=== PATIENT | female | born 1990 | race Caucasian/White ===

== ENCOUNTER 2018-12-18 17:07 | Inpatient (IN) ==
[2018-12-18] MEDS ORDERED: Acetaminophen 325 MG TABLET PO PRN (19:28)
[2018-12-18] MEDS ORDERED: Simethicone 80 MG TAB.CHEW PO PRN (19:28)
[2018-12-18] MEDS: Ondansetron ODT 4 MG TAB.RAPDIS SL PRN (21:44)
[2018-12-19] MEDS: *HR* Enoxaparin 80 MG/0.8 ML SYRINGE SQ SCH ×2 (06:27→18:11)
[2018-12-19] MEDS: Ondansetron ODT 4 MG TAB.RAPDIS SL PRN ×2 (06:28→15:10)
[2018-12-19] MEDS: Famotidine 20 MG/2 ML VIAL IVP SCH ×2 (06:36→18:01)
[2018-12-19] MEDS: Multivit/Ca/Min/Fe/FA 1 TAB TABLET PO SCH (09:35)
[2018-12-20] MEDS: *HR* Enoxaparin 80 MG/0.8 ML SYRINGE SQ SCH ×2 (05:43→17:10)
[2018-12-20] MEDS: Ondansetron ODT 4 MG TAB.RAPDIS SL PRN ×3 (05:43→22:56)
[2018-12-20] MEDS: Famotidine 20 MG/2 ML VIAL IVP SCH ×2 (05:43→17:09)
[2018-12-20 06:26] LABS: Basophils % 0.4 %; Eosinophils # 0.2 K/mcL (0.0-0.6); Hematocrit 25.9 % (35.3-44.9); Hemoglobin 8.7 g/dL (11.5-15.4); Immature Granulocytes % 1.1 % (0-4); Lymphocytes # 1.4 K/mcL (0.6-4.6); Mean Corpuscular HGB Conc 33.6 g/dL (31.6-35.5); Mean Corpuscular Hemoglobin 30.1 pg (28.0-33.3); Mean Corpuscular Volume 89.6 fL (83.0-100.0); Mean Platelet Volume 9.2 fL (9.4-12.4); Monocytes # 0.7 K/mcL (0.0-1.3); Neutrophils # 3.2 K/mcL (1.6-8.9); Platelet Count 402 K/mcL (140-400); Red Blood Count 2.89 M/mcL (3.82-4.97); Red Cell Distribution Width 11.5 % (11.5-14.5); Segmented Neutrophils % 58.5 %; White Blood Count 5.4 K/mcL (4.3-11.1)
[2018-12-20 06:48] LABS: Alanine Aminotransferase 33 Units/L (7-52); Albumin 2.9 g/dL (3.5-5.7); Alkaline Phosphatase 86 Units/L (34-104); Aspartate Amino Transferase 29 Units/L (13-39); BUN/Creatinine Ratio 24 (6-26); Bilirubin,Total 0.4 mg/dL (0.3-1.0); Blood Urea Nitrogen 10 mg/dL (6-20); Calcium 8.6 mg/dL (8.6-10.3); Carbon Dioxide 27 mEq/L (23-29); Chloride 102 mEq/L (98-107); Globulin 2.9 g/dL (2.4-3.5); Glucose 91 mg/dL (70-105); Osmolality,Calculated 283 (280-300); Potassium 3.9 mEq/L (3.5-5.1); Sodium 137 mEq/L (136-145); Total Protein 5.8 g/dL (6.4-8.9); eGFR For African Americans > 60 (> 60); eGFR For Non-African Americans > 60 (> 60)
[2018-12-20] MEDS: Multivit/Ca/Min/Fe/FA 1 TAB TABLET PO SCH (08:16)
[2018-12-20 12:59] LABS: % Iron Saturation 12 % (15-50); Iron 25 mcg/dL (50-170); Transferrin 153 mg/dL (203-362)
[2018-12-20 13:14] LABS: Ferritin 170 ng/mL (10-120)
[2018-12-20 13:19] LABS: Folate 12.7 ng/mL (3.0-16.0)
[2018-12-20] MEDS ORDERED: Mag Hydrox/Al Hydrox/Simeth 30 ML UDC PO ONE (20:14)
[2018-12-20] MEDS ORDERED: ALPRAZolam 0.25 MG TABLET PO PRN (21:10)
[2018-12-20 21:48] LABS: Basophils % 0.3 %; Eosinophils # 0.2 K/mcL (0.0-0.6); Eosinophils % 2.7 %; Hemoglobin 8.6 g/dL (11.5-15.4); Immature Granulocytes % 1.1 % (0-4); Lymphocytes # 1.7 K/mcL (0.6-4.6); Lymphocytes % 26.9 %; Mean Corpuscular HGB Conc 33.1 g/dL (31.6-35.5); Mean Corpuscular Volume 90.6 fL (83.0-100.0); Mean Platelet Volume 9.1 fL (9.4-12.4); Monocytes # 0.7 K/mcL (0.0-1.3); Monocytes % 10.5 %; Neutrophils # 3.7 K/mcL (1.6-8.9); Platelet Count 415 K/mcL (140-400); Red Blood Count 2.87 M/mcL (3.82-4.97); Red Cell Distribution Width 11.5 % (11.5-14.5); Segmented Neutrophils % 58.5 %; White Blood Count 6.3 K/mcL (4.3-11.1)
[2018-12-20 22:09] LABS: Alanine Aminotransferase 35 Units/L (7-52); Alkaline Phosphatase 88 Units/L (34-104); Aspartate Amino Transferase 28 Units/L (13-39); BUN/Creatinine Ratio 20 (6-26); Bilirubin,Total 0.3 mg/dL (0.3-1.0); Blood Urea Nitrogen 10 mg/dL (6-20); Calcium 8.6 mg/dL (8.6-10.3); Carbon Dioxide 25 mEq/L (23-29); Chloride 102 mEq/L (98-107); Glucose 118 mg/dL (70-105); Osmolality,Calculated 282 (280-300); Potassium 4.1 mEq/L (3.5-5.1); Sodium 136 mEq/L (136-145); eGFR For African Americans > 60 (> 60); eGFR For Non-African Americans > 60 (> 60)
[2018-12-21] MEDS: *HR* Enoxaparin 80 MG/0.8 ML SYRINGE SQ SCH ×2 (05:52→17:07)
[2018-12-21] MEDS: Famotidine 20 MG/2 ML VIAL IVP SCH ×2 (05:53→17:07)
[2018-12-21] MEDS: Multivit/Ca/Min/Fe/FA 1 TAB TABLET PO SCH (09:52)
[2018-12-21] MEDS: Ondansetron ODT 4 MG TAB.RAPDIS SL PRN ×2 (09:52→23:00)
[2018-12-22] MEDS: *HR* Enoxaparin 80 MG/0.8 ML SYRINGE SQ SCH (06:43)
[2018-12-22] MEDS: Famotidine 20 MG/2 ML VIAL IVP SCH (06:43)
[2018-12-22 07:11] VITALS: BP 97/65
[2018-12-22] MEDS: Multivit/Ca/Min/Fe/FA 1 TAB TABLET PO SCH (07:24)
== END 2018-12-22 09:30 | disposition home or self-care (01) | DRG 832 ==
LOC: INPPIK 20:45
PROVIDERS: ADMIT Internal Medicine; ATTEND Internal Medicine